=== PATIENT | female | born 1980 | race Caucasian/White ===

== ENCOUNTER 2019-11-25 19:44 | Inpatient (IN) | payer OTHER ==
[2019-11-25] MEDS ORDERED: Morphine 4 MG/ML VIAL ONE (20:55)
[2019-11-25] MEDS ORDERED: Sulfameth/Trimethoprim DS 800-160mg TAB ONE (20:55)
[2019-11-25] MEDS ORDERED: Lidocaine 1% w/Epinephrine 1:100K 20 ML VIAL ONE (20:56)
[2019-11-25] MEDS ORDERED: Ketorolac Tromethamine 30 MG/ML VIAL ONE (20:56)
[2019-11-25] MEDS ORDERED: Vancomycin 1.5 GRAM/300 ML BAG 1.5 GM in Premix Bag 1 BAG IVPB SCH (21:00)
[2019-11-25] MEDS ORDERED: Sulfameth/Trimethoprim DS 800-160mg TAB PO SCH (21:00)
[2019-11-25] MEDS ORDERED: Adacel (T-DAP) 0.5 ML SYRINGE ONE (21:54)
[2019-11-25] MEDS ORDERED: Acetaminophen 500 MG TAB ONE (22:05)
--- NOTE | 2019-11-25 23:24 | PDOC.FPRHP ---
- History of Present Illness Chief Complaint: ABD Pain History of Present Illness: Patient is a 39 y/o female who presents to the ED for evaluation of abdominal pain. Per the patient, she has had a sore on her abdomen for 4 days that has become progressively erythematous and painful after she manually expressed some of its contents. She also complains of minimal induration at the site. She tried to apply topical antibiotic ointment, but states that it did not help. She admits to an isolated fever of 101 (Oral) prior to her presentation to the ED, but denies wing drainage, foul odors, N/V, frequent infections, previous occurrence of similar sores, a history of staph infections , additional sores, chills, WELCH, changes in vision, hearing, difficulty swallowing, epistaxis or rhinorrhea. ED Course: While in the ED, an I&D was performed by the ED attending physician with subsequent packing and dressing. Immediately after the procedure, the patient became minimally hypotensive, with a BP as low as 93/58. She received 2L NS, Tylenol, Toradol and Morphine and was started on Vancomycin and Bactrim DS. - Allergies/Adverse Reactions Allergies Allergy/AdvReac Type Severity Reaction Status Date / Time No Known Drug Allergies Allergy Verified 11/26/19 00:31 - Home Medications Medication Instructions Recorded Confirmed Type Citalopram [CeleXA] 20 mg PO HS 11/26/19 11/26/19 History Zolpidem Tartrate 10 mg PO HS 11/26/19 11/26/19 History - History PMHx: Anxiety, Insomnia, Menorrhagia (Remote) PSHx: Hysterectomy, Cholecystectomy, Tonsillectomy FHx: +DM2, No Hx of Infections, Immunodeficiencies Social: Tobacco (0.5 PPD), EtOH (x5 per Week), Denies Street Drugs Code: DNAR - Review of Systems General: reports: fever/chills Eyes: denies: vision changes ENT: denies: nasal congestion, rhinorrhea Respiratory: denies: cough, congestion, shortness of breath Cardiovascular: denies: chest pain, edema Gastrointestinal: denies: nausea, vomiting, diarrhea, constipation, abdominal pain, GI bleeding Genitourinary: denies: dysuria Skin: reports: lesions, other (See HPI) Musculoskeletal: denies: swelling Neurological: denies: syncope, weakness Psychological: reports: anxiety - Vital signs BP: [95/67] HR: [77] RR: [16] Tmax: [98.3] Pox: [98]% on [Room] Wt: [84 kg] - Physical Exam Constitutional: NAD, awake, alert and oriented, well developed HEENT: normocephalic and atraumatic, PERRLA, EOMI, conjunctiva clear, no scleral icterus, grossly normal vision, grossly normal hearing, normal nasal mucosa, MMM, oropharynx clear Neck: supple, FROM, trachea midline, no LAD, no JVD Chest: no-tender to palpation, no lesions Heart: RRR, normal S1/S2, no murmurs/rubs/gallops, pulses present, no edema Lungs: CTAB, no respiratory distress, good air movement, no rales/rhonchi, no wheezing, no retractions Abdomen: other (Small wound s/p I&D ~4 cm below umbilicus. Minimal bloody strikethrough on bandage without active bleeding or discharge. Surrounding area of erythema extended 4-10 cm with no induration noted. Moderate TTP.) Musculoskeletal: normal structure, ROM grossly normal Neurological: no focal deficit Skin: no jaundice, other (See ABD) Heme/Lymphatic: no unusual bruising or bleeding, no purpura, no petechia Psychiatric: normal mood and affect, good judgment and insight, intact recent and remote memory FMR H&P: Results - Labs Result Diagrams: 11/26/19 07:58 11/25/19 23:03 - Radiology Interpretation US - abdomen Status: report reviewed by me (0.5 cm Fluid Collection (Per ED Attending Physician)) FMR H&P: A/P - Problem List (1) Abscess or cellulitis of umbilicus Current Visit: Yes Status: Acute Code(s): [id number] - (2) Tobacco abuse Current Visit: Yes Status: Acute Code(s): Z72.0 - TOBACCO USE (3) Insomnia Current Visit: Yes Status: Acute Code(s): G47.00 - INSOMNIA, UNSPECIFIED (4) Anxiety Current Visit: Yes Status: Acute Code(s): F41.9 - ANXIETY DISORDER, UNSPECIFIED - Plan Patient is a 39 y/o female admitted to the Medical Floor for ABD pain. 1. Abscess w/ Surrounding Cellulitis -s/p I&D w/ asymptomatic drop in BP -Received Vancomycin and Bactrim DS in ED - will continue with weight adjustment -Blood Cultures: Pending (Drawn After Antibiotic Administration) -Tylenol 650 mg PO Q4H for pain/fever -LR @ 125 ml/hr -Nursing staff to connor area of erythema - monitor for resolution 2. Anxiety -Currently holding home Citalopram regimen based on time of presentation -Consider restarting if patient requires > 24H of care 3. Insomnia -Currently holding home Zolpidem regimen based on risk of hypotension -Consider alternative medication regimen if required 4. Tobacco Abuse -Nicotine 14 mg Patch -Patient was counseled on tobacco cessation Code: DNAR Diet: Heart Healthy Activity: Ad Chelita VTE PPx: None based on Chang Score (0) Dispo: Patient is currently admitted to the Medical Floor for observation of Abscess w/ Surrounding Cellulitis. Continue antibiotic regimen as per above. Monitor vitals and continue with IVF. Expected LOS < 24H. FMR H&P: Upper Level - Pertinent history 39 y/o F presents to the ED because on Saturday she noticed a small bump on her lower abdomen. She reports she messed with it and then since then it has started getting more red, warm, and painful. She reports today was the worst pain and redness she has had. She reports a fever to 101 today. She denies any h /o prior skin infections or needle exposures. In the ED she was evaluated by Dr. Somers and had an I&D done of the wound along with bactrim, vanc, 2L NS, morphine, and toradol. Per report she spiked a fever and her BP dropped after the I&D so the decision was made to admit the patient. No culture of the wound was done and blood cultures weren't done prior to antibiotics. - Pertinent findings Vitals: BP 95/67, HR 77, RR 16, Tmax 100.7, O2 98% on RA Gen - alert, oriented, NAD HEENT - MMM CV - RRR, no murmurs Lungs - CTAB, no wheezes Skin - large erythematous, warm, indurated area on lower abdomen with small 1cm incision that has been packed s/p I&D Labs: Pending - Plan Date/Time: 11/25/19 2312 ILaisha MD, PGY-3, have evaluated this patient and agree with findings/ plan as outlined by intern architect resident. Pertinent changes/additions are listed here. 1. Abdominal wall abscess with surrounding cellulitis s/p bactrim, vanc, I&D of abscess. Pt does not appear septic despite temporary hypotension. -Continue vanc and bactrim -BCx pending -Labwork pending -Will connor area of cellulitis to monitor for spread or improvement 2. Anxiety -Continue citalopram 3. Insomnia -Continue zolpidem Dipso: Obs on medical LOS: Likely less than 48 hours Addendum - Attending - Attending Attestation Date/Time: 11/26/19 6304 I personally discussed the care plan with Dr Ndiaye. I agree with the History, Examination, Assessment and Plan documented above with any addition or exceptions noted below.
[2019-11-25 23:31] LABS: #Eosinphils 0.2 thou/uL (0.0-0.7); #Lymphocytes 2.6 thou/uL (1.20-3.40); #Neutrophils 9.8 thou/uL (1.40-6.50); %Basophils 0.3 % (0.0-1.0); %Eosinophils 1.6 % (0.0-10.0); %Monocytes 7.5 % (0.0-10.0); %Neutrophils 71.6 % (42.0-75.0); Hemoglobin 12.6 g/dL (12.0-16.0); Mean Corpuscular HGB CONC 34.1 g/dL (32.0-36.0); Mean Corpuscular Hemoglobin 32.7 pg (27.0-31.0); Mean Corpuscular Volume 95.9 fL (78.0-98.0); Mean Platelet Volume 7.4 fL (7.4-10.4); Platelet Count 297 thou/uL (130-400); RBC Distribution Width 11.8 % (11.5-14.5); Red Blood Cell (RBC) Count 3.85 mill/uL (4.20-5.40); White Blood Cell (WBC) Count 13.7 thou/uL (4.8-10.8)
[2019-11-25 23:40] LABS: ALT (SGPT) 15 U/L (8-55); AST (SGOT) 11 U/L (5-34); Albumin 3.8 g/dL (3.5-5.0); Alkaline Phosphatase 47 U/L (40-110); Anion Gap 10 mmol/L (10-20); BUN (Urea Nitrogen) 9 mg/dL (7.0-18.7); Bilirubin, Total 0.5 mg/dL (0.2-1.2); Calc. Creatinine Clearance 0 mL/min (70-130); Calcium 8.6 mg/dL (7.8-10.44); Carbon Dioxide 23 mmol/L (22-29); Chloride 108 mmol/L (98-107); Estimated GFR-MDRD Greater than 90; Globulin 2.8 g/dL (2.4-3.5); Glucose 107 mg/dL (70-105); Potassium 3.6 mmol/L (3.5-5.1); Protein, Total 6.6 g/dL (6.0-8.3); Sodium 137 mmol/L (136-145)
[2019-11-26] MEDS ORDERED: Calcium Carbonate 500 MG ChewTAB PO PRN (00:24)
[2019-11-26 00:40] VITALS: BMI 27.1
[2019-11-26] MEDS: Lactated Ringer's 1,000 ML IV SCH ×4 (00:59→19:53)
[2019-11-26] MEDS: Nicotine 14 MG PATCH TD SCH (00:59)
--- NOTE | 2019-11-26 05:43 | PDOC.FM ---
- Subjective Subjective: Patient states that she continues to have lower abdominal pain. The wound has continued to drain red-brown fluid. BP remains low at 90/60, earlier in night was 85/52. Patient denies any lightheadedness, dizziness, chest pain, palpitations, SOB, headache. She voices additional history that she has been running a fever at home the last few days, up to 101F. She says the wound on her lower stomach has been present for awhile and she tried to open it at home 3 days ago with some pus draining from the area. - Objective Vital Signs & Weight: Vital Signs (12 hours) Temp Pulse Resp BP Pulse Ox 11/26/19 04:23 98.1 F 80 16 90/60 98 11/26/19 00:08 98.1 F 76 14 85/52 L 98 Weight Weight 83.28 kg Result Diagrams: 11/26/19 07:58 11/25/19 23:03 Phys Exam - Physical Examination Constitutional: NAD HEENT: moist MMs Neck: no JVD, supple, full ROM Respiratory: no wheezing, clear to auscultation bilateral Cardiovascular: RRR, no significant murmur Gastrointestinal: soft, positive bowel sounds TTP across lower abdomen, erythema at margins marked @ 0430 Musculoskeletal: no edema, pulses present Neurological: normal sensation, moves all 4 limbs Psychiatric: normal affect, A&O x 3 Skin: normal turgor Deviation from normal: warm, erythematous skin across lower abdomen, red-brown drainage present Dx/Plan (1) Abscess or cellulitis of umbilicus Code(s): [id number] - Status: Acute (2) Anxiety Code(s): F41.9 - ANXIETY DISORDER, UNSPECIFIED Status: Acute (3) Insomnia Code(s): G47.00 - INSOMNIA, UNSPECIFIED Status: Acute (4) Tobacco abuse Code(s): Z72.0 - TOBACCO USE Status: Acute - Plan Plan: Patient is a 39 y/o female admitted to the Medical Floor for ABD pain. #Sepsis 2/2 Cellulitis -patient on admission had tachycardia (up to 111), SBP of < 90 (was 85), and WBC > 12 (was 13.7) -received 2L bolus in ED, started on Vancomycin and Bactrim DS in ED -will continue Abx, consider adding Clindamycin for toxin-binding properties if condition worsens -Wound cx not sent by ED, will order culture to be collected by Wound care this AM -Blood cultures pending (drawn after 1 dose Vancomycin) #Abdominal Abscess w/ Surrounding Cellulitis -s/p I&D w/ asymptomatic drop in BP -Received Vancomycin and Bactrim DS in ED - will continue with weight adjustment -Blood Cultures: Pending (Drawn After Antibiotic Administration) -Tylenol 650 mg PO Q4H for pain/fever -LR @ 125 ml/hr -Nursing staff to connor area of erythema - monitor for resolution #Anxiety -Currently holding home Citalopram regimen based on time of presentation -Consider restarting if patient requires > 24H of care #Insomnia -Currently holding home Zolpidem regimen based on risk of hypotension -Consider alternative medication regimen if required #Tobacco Abuse -Nicotine 14 mg Patch -Patient was counseled on tobacco cessation Code: DNAR Diet: Heart Healthy VTE PPx: None based on Chang Score (0) Dispo: Stable, admitted to inpatient on the Medical Floor. Continue antibiotic regimen per above, cultures pending. Will collect additional wound culture today. Monitor erythema margins & clinical condition. Expect discharge in next 48-72 hrs. Addendum - Attending - Attending Attestation Date/Time: 11/26/19 4309 I personally evaluated the patient and discussed the management with Dr. Dawson. I agree with the History, Examination, Assessment and Plan documented above with any addition or exceptions noted below. Will attempt to get a wound culture with wound care dressing change. Erythema extending beyond margins laterally to the left. Continue vancomycin. Pt meets sepsis criteria. Change to inpt.
[2019-11-26 08:32] LABS: #Eosinphils 0.2 thou/uL (0.0-0.7); #Lymphocytes 2.2 thou/uL (1.20-3.40); #Neutrophils 7.5 thou/uL (1.40-6.50); %Basophils 0.1 % (0.0-1.0); %Eosinophils 2.1 % (0.0-10.0); %Lymphocytes 20.1 % (21.0-51.0); %Monocytes 8.7 % (0.0-10.0); Hemoglobin 11.3 g/dL (12.0-16.0); Mean Corpuscular Hemoglobin 33.1 pg (27.0-31.0); Mean Corpuscular Volume 97.4 fL (78.0-98.0); Mean Platelet Volume 7.6 fL (7.4-10.4); Platelet Count 252 thou/uL (130-400); RBC Distribution Width 11.8 % (11.5-14.5); Red Blood Cell (RBC) Count 3.41 mill/uL (4.20-5.40); White Blood Cell (WBC) Count 10.9 thou/uL (4.8-10.8)
[2019-11-26] MEDS ORDERED: Sulfameth/Trimethoprim DS 800-160mg TAB PO SCH (09:00)
[2019-11-26] MEDS ORDERED: Vancomycin HCl 1.25 GM in Sodium Chloride 0.9% 250 ML 300 ML IVPB SCH (09:30)
[2019-11-26] MEDS: Acetaminophen 325 MG TAB PO PRN ×2 (11:12→17:17)
[2019-11-26] MEDS: Citalopram 20 MG TAB PO SCH (19:52)
[2019-11-27] MEDS: Nicotine 14 MG PATCH TD SCH (02:35)
--- NOTE | 2019-11-27 06:16 | PDOC.FM ---
- Subjective Subjective: Patient doing well this morning. Reports that her abdomen is much less tender than it was. Area of erythema largely within the borders of the margins, though some expansion extended through side on patient's right. Discussed with patient that we will continue IV abx at this time, and will transition to PO abx when we see improvement. Patient agreeable with the plan of care. - Objective MAR Reviewed: Yes Vital Signs & Weight: Vital Signs (12 hours) Temp Pulse Resp BP Pulse Ox 11/27/19 04:00 99.0 F 81 16 103/70 11/27/19 01:05 77 99/64 11/26/19 20:00 98.3 F 86 16 88/56 L 97 Weight Admit Weight 83.007 kg Weight 83.28 kg I&O: 11/25/19 11/26/19 11/27/19 06:59 06:59 06:59 Intake Total 911 2360 Output Total 300 Balance 611 2360 Result Diagrams: 11/27/19 06:29 11/27/19 06:29 Phys Exam - Physical Examination Constitutional: NAD HEENT: moist MMs, sclera anicteric Neck: supple, full ROM Respiratory: no wheezing, clear to auscultation bilateral Cardiovascular: RRR, no significant murmur Gastrointestinal: soft area of erythema over lower abdomen, abscess wound cover c/d/i Musculoskeletal: no edema, pulses present Neurological: non-focal, normal sensation Lymphatic: no nodes Psychiatric: normal affect, A&O x 3 Skin: no rash, normal turgor Dx/Plan (1) Abscess or cellulitis of umbilicus Code(s): [id number] - Status: Acute (2) Anxiety Code(s): F41.9 - ANXIETY DISORDER, UNSPECIFIED Status: Chronic (3) Insomnia Code(s): G47.00 - INSOMNIA, UNSPECIFIED Status: Chronic (4) Tobacco abuse Code(s): Z72.0 - TOBACCO USE Status: Chronic - Plan Plan: Patient is a 39 y/o female admitted to the Medical Floor for lower abdominal cellulitis and abscess. #Sepsis 2/2 Cellulitis -patient on admission had tachycardia (up to 111), SBP of < 90 (was 85), and WBC > 12 (was 13.7) -received 2L bolus in ED, started on Vancomycin and Bactrim DS in ED -afebrile overnight -vancomycin was discontinued yesterday; will re-start vancomycin this morning -will continue vancomycin, consider adding Clindamycin for toxin-binding properties if condition worsens -Wound cx not sent by ED, culture ordered with preliminary results showing gram + cocci in clusters -Blood cultures pending (drawn after 1 dose Vancomycin) #Abdominal Abscess w/ Surrounding Cellulitis -s/p I&D w/ asymptomatic drop in BP -Received Vancomycin and Bactrim DS in ED - will continue vancomycin with weight adjustment -Blood Cultures: Pending (Drawn After Antibiotic Administration) -Wound cultures: gram + cocci in clusters, pending sensitivities -Tylenol 650 mg PO Q4H for pain/fever -LR @ 125 ml/hr -Nursing staff to connor area of erythema - monitor for resolution #Anxiety -Continue home Citalopram #Insomnia -Currently holding home Zolpidem regimen based on risk of hypotension -Consider alternative medication regimen if required #Tobacco Abuse -Nicotine 14 mg Patch -Patient was counseled on tobacco cessation Code: DNAR Diet: Heart Healthy VTE PPx: None based on Chang Score (0) Dispo: Stable, admitted to inpatient on the Medical Floor. Continue antibiotic regimen per above, cultures pending. Addendum - Attending - Attending Attestation Date/Time: 11/27/19 1037 I personally evaluated the patient and discussed the management with Dr. Dawson. I agree with the History, Examination, Assessment and Plan documented above with any addition or exceptions noted below. Pt will continue vanc. Her tenderness is improved. Erythema is stable and possible a little improved from yesterday. Pt is hypotensive with systolic in 80's but she is asymptomatic.
[2019-11-27 06:58] LABS: #Eosinphils 0.2 thou/uL (0.0-0.7); #Lymphocytes 1.5 thou/uL (1.20-3.40); #Monocytes 0.7 thou/uL (0.11-0.59); #Neutrophils 5.6 thou/uL (1.40-6.50); %Basophils 0.1 % (0.0-1.0); %Eosinophils 2.4 % (0.0-10.0); %Lymphocytes 18.9 % (21.0-51.0); %Monocytes 8.5 % (0.0-10.0); %Neutrophils 70.1 % (42.0-75.0); Hemoglobin 11.9 g/dL (12.0-16.0); Mean Corpuscular HGB CONC 34.3 g/dL (32.0-36.0); Mean Corpuscular Hemoglobin 32.9 pg (27.0-31.0); Mean Corpuscular Volume 95.9 fL (78.0-98.0); Mean Platelet Volume 7.5 fL (7.4-10.4); Platelet Count 247 thou/uL (130-400); RBC Distribution Width 11.9 % (11.5-14.5); Red Blood Cell (RBC) Count 3.62 mill/uL (4.20-5.40); White Blood Cell (WBC) Count 7.9 thou/uL (4.8-10.8)
[2019-11-27 07:17] LABS: Anion Gap 8 mmol/L (10-20); BUN (Urea Nitrogen) 5 mg/dL (7.0-18.7); Calc. Creatinine Clearance 154 mL/min (70-130); Calcium 8.7 mg/dL (7.8-10.44); Carbon Dioxide 24 mmol/L (22-29); Chloride 107 mmol/L (98-107); Estimated GFR-MDRD Greater than 90; Glucose 96 mg/dL (70-105); Sodium 135 mmol/L (136-145)
[2019-11-27] MEDS: Lactated Ringer's 1,000 ML IV SCH ×3 (08:31→20:31)
[2019-11-27] MEDS: Vancomycin HCl 1.25 GM in Sodium Chloride 0.9% 250 ML 250 ML IVPB SCH ×2 (09:29→16:22)
[2019-11-27] MEDS: Citalopram 20 MG TAB PO SCH (20:32)
[2019-11-27] MEDS ORDERED: Clotrimazole 2% 3 Day Vag Cr 22.2 GM TUBE VAG SCH (21:00)
[2019-11-28] MEDS: Nicotine 14 MG PATCH TD SCH (00:44)
[2019-11-28] MEDS: Vancomycin HCl 1.25 GM in Sodium Chloride 0.9% 250 ML 250 ML IVPB SCH ×2 (00:44→08:05)
--- NOTE | 2019-11-28 05:34 | PDOC.FM ---
- Subjective Subjective: Patient doing well this morning. Reports her abdominal pain from the cellulitis is greatly improved. Reports that her mother is a nurse and she works in a long term with wound care staff that could help her change her bandaging for where the abscess was drained. Discussed likely transition to PO abx today, with possible d/c. Patient agreeable. - Objective Vital Signs & Weight: Vital Signs (12 hours) Temp Pulse Resp BP Pulse Ox 11/28/19 00:00 98.5 F 51 L 16 90/58 L 98 11/27/19 20:00 98.7 F 67 16 108/70 98 Weight Admit Weight 83.007 kg Weight 83.28 kg I&O: 11/26/19 11/27/19 11/28/19 06:59 06:59 06:59 Intake Total 911 2360 Output Total 300 Balance 611 2360 Result Diagrams: 11/27/19 06:29 11/27/19 06:29 Phys Exam - Physical Examination Constitutional: NAD HEENT: moist MMs, sclera anicteric Neck: supple, full ROM Respiratory: no wheezing, clear to auscultation bilateral Cardiovascular: RRR, no significant murmur Gastrointestinal: soft lower abdominal erythema, improved; abscess wound bandage c/d/i Musculoskeletal: no edema, pulses present Neurological: non-focal, moves all 4 limbs Psychiatric: normal affect, A&O x 3 Skin: normal turgor Deviation from normal: lower abdominal cellulitis rash improved Dx/Plan (1) Abscess or cellulitis of umbilicus Code(s): [id number] - Status: Acute (2) Anxiety Code(s): F41.9 - ANXIETY DISORDER, UNSPECIFIED Status: Chronic (3) Insomnia Code(s): G47.00 - INSOMNIA, UNSPECIFIED Status: Chronic (4) Tobacco abuse Code(s): Z72.0 - TOBACCO USE Status: Chronic - Plan Plan: Patient is a 39 y/o female admitted to the Medical Floor for lower abdominal cellulitis and abscess. #Sepsis 2/2 Cellulitis -patient on admission had tachycardia (up to 111), SBP of < 90 (was 85), and WBC > 12 (was 13.7) -received 2L bolus in ED, started on Vancomycin and Bactrim DS in ED -afebrile overnight -vancomycin was re-started morning of 11/27 -Wound cx not sent by ED, culture ordered with preliminary results showing staph aureus resistant to amoxicillin, azithromycin, clarithromycin, erythromycin, piperacillin -will transition to PO clindamycin today -Blood cultures pending (drawn after 1 dose Vancomycin) #Abdominal Abscess w/ Surrounding Cellulitis -s/p I&D w/ asymptomatic drop in BP -Received Vancomycin and Bactrim DS in ED -Blood Cultures: Pending (Drawn After Antibiotic Administration) -Wound cultures: staph aureus -Tylenol 650 mg PO Q4H for pain/fever -LR @ 125 ml/hr #Anxiety -Continue home Citalopram #Insomnia -Currently holding home Zolpidem regimen based on risk of hypotension -Consider alternative medication regimen if required #Tobacco Abuse -Nicotine 14 mg Patch -Patient was counseled on tobacco cessation Code: DNAR Diet: Heart Healthy VTE PPx: None based on Chang Score (0) Dispo: Stable, admitted to inpatient on the Medical Floor. Transition from IV to PO abx, with possible d/c today if patient tolerates PO abx.
[2019-11-28] MEDS: Lactated Ringer's 1,000 ML IV SCH (05:57)
[2019-11-28 07:43] VITALS: TEMP 98.2
[2019-11-28 08:35] LABS: #Eosinphils 0.3 thou/uL (0.0-0.7); #Lymphocytes 1.6 thou/uL (1.20-3.40); #Monocytes 0.7 thou/uL (0.11-0.59); #Neutrophils 3.4 thou/uL (1.40-6.50); %Basophils 0.5 % (0.0-1.0); %Eosinophils 4.5 % (0.0-10.0); %Lymphocytes 27.3 % (21.0-51.0); %Neutrophils 56.7 % (42.0-75.0); Mean Corpuscular HGB CONC 34.3 g/dL (32.0-36.0); Mean Corpuscular Hemoglobin 32.8 pg (27.0-31.0); Mean Corpuscular Volume 95.7 fL (78.0-98.0); Mean Platelet Volume 7.6 fL (7.4-10.4); Platelet Count 263 thou/uL (130-400); RBC Distribution Width 11.8 % (11.5-14.5); Red Blood Cell (RBC) Count 3.66 mill/uL (4.20-5.40)
[2019-11-28 08:54] LABS: Vancomycin, Trough 14.8 ug/mL
[2019-11-28 08:56] LABS: Anion Gap 12 mmol/L (10-20); BUN (Urea Nitrogen) 8 mg/dL (7.0-18.7); Calc. Creatinine Clearance 154 mL/min (70-130); Carbon Dioxide 24 mmol/L (22-29); Chloride 105 mmol/L (98-107); Estimated GFR-MDRD Greater than 90; Glucose 95 mg/dL (70-105); Potassium 4.1 mmol/L (3.5-5.1); Sodium 137 mmol/L (136-145)
[2019-11-28 11:37] VITALS: BP 95/64
--- NOTE | 2019-12-01 06:33 | PQF ---
[employer] Comic Illustrator Crystal Reports Winform ViewerSTBUCK ROSA TRICIA NORIEGA MD [id number] [facility] [id number] CLINICAL DOCUMENTATION CLARIFICATION FORM: POST DISCHARGE Addendum to original discharge summary date: ____ Late entry note date: __ DATE: 12/01/2019 ATTN: TRICIA NORIEGA MD Please exercise your independent, professional judgment in responding to the clarification form. Clinical indicators are provided on the bottom of this form for your review Please check appropriate box(s): [ ] Incision and Drainage only (No Debridement): Depth:[ ] Skin [ ] Subcutaneous [ ] Fascia [ ] Muscle [ ] Tendon [ ] Bone [ ] Escharectomy [ ] Other procedure diagnosis [ ] Unable to determine For continuity of documentation, please document condition throughout progress notes and discharge summary. Thank You. CLINICAL INDICATORS - SIGNS / SYMPTOMS / LABS I&D indicated for cutaneous abscess - Documented in ED note pg#8 by TRICIA NORIEGA MD The abscess cavity was well visualized - Documented in ED note pg#8 by TRICIA NORIEGA MD I&D to abdomen, tissue abscess simple - Documented in ED note pg#8 by TRICIA NORIEGA MD incision was made over area of fluctuance explored for loculations - Documented in ED note pg#8 by TRICIA NORIEGA MD RISK FACTORS There was no complication - Documented in ED note pg#8 by TRICIA NORIEGA MD Cellulitis of the abdominal wall - Documented in ED note pg#8 by TRICIA NORIEGA MD TREATMENTS: packed with sterile gauze drained pus after procedure wound dressed - Documented in ED note pg#8 by TRICIA NORIEGA MD (This form is maintained as a part of the permanent medical record) 2015 [employer]. All Rights Reserved [email or web address] [not provided] MTDD
--- NOTE | 2019-12-07 14:01 | DIS ---
DATE OF ADMISSION: 11/26/2019 DATE OF DISCHARGE: 11/28/2019 ADMITTING RESIDENT: Deejay Ndiaye MD. ADMITTING ATTENDING: Carlos Enrique Chavez MD. DISCHARGE RESIDENT: Rosamaria Mckenzie MD. DISCHARGE ATTENDING: Jac Ravi MD. CONSULTS: Wound care. PROCEDURES: I and D in the emergency department. IMAGING: None. PRIMARY DIAGNOSES: Sepsis due to cellulitis, abdominal abscess with surrounding cellulitis. SECONDARY DIAGNOSES: Anxiety, insomnia, tobacco abuse. DISCHARGE MEDICATIONS: 1. 500 mg Keflex p.o. q.6 hours x10 days. 2. 20 mg citalopram p.o. at bedtime. 3. 10 mg zolpidem tartrate p.o. at bedtime. Discontinued medications; 1. Tylenol p.r.n. 2. Tums p.r.n. 3. Monistat. 4. Nicotine patch. 5. Vancomycin. HISTORY OF PRESENT ILLNESS/HOSPITAL COURSE: The patient is a 39-year-old female with a past medical history of anxiety and depression and tobacco abuse, who presented for abdominal pain. She had reported that she had a sore on her abdomen for the past 4 days that has become progressively erythematous and painful and she was able to express some of its contents with palpation. She had tried topical antibiotic ointment, but it did not help and she had fever prior to her presentation in the ED. While in the ED, an I & D was performed with subsequent packing and dressing and after the procedure, the patient became hypotensive with blood pressures in the 90s over 50s, so she was admitted to the medical floor for treatment of sepsis due to cellulitis and abdominal abscess. The patient was started on vancomycin, though had received a dose of Bactrim in the ER. With the vancomycin, the patient showed improvement, as the area of erythema has been marked each day to show progression of the cellulitis. On the day of discharge, the patient was transitioned over from vancomycin to Keflex, as the wound culture had grown out Staph aureus sensitive to Keflex. The patient did have low blood pressures throughout her hospitalization, ranging in the 80s to 90s over 50s to 60s, the patient was asymptomatic during the entire duration of her hospitalization and p.o. intake was encouraged. 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 Directions were also given on how to take the Keflex for the next 10 days and to followup with her primary care provider within the next week to monitor for any return of erythema or abscess. It was also discussed that if the patient was to have a fever or if erythema was to worsen, the patient was instructed to go back to the ER to be evaluated. The patient was evaluated on the day of the discharge and found to be in stable condition and was agreeable with the plan of care. DISCHARGE DISPOSITION: Stable. DISCHARGE INSTRUCTIONS: 1. Location: Home. 2. Diet: Regular. 3. Activity: As tolerated. 4. Follow up with PCP within 7 days. Patient was provided info on [employer]. Job ID: [id number] MTDD
== END 2019-11-28 12:14 | disposition home or self-care (01) | DRG 872 ==
LOC: ERS 19:44 → 2SW 23:05 → OBSVTOIN 11-26 07:38 → T4-B 11-26 17:18
PROVIDERS: ADMIT Family Medicine; ATTEND Family Medicine
PROC: 0W9F3ZZ Drainage of Abdominal Wall, Percutaneous Approach (ICD-10-PCS; principal; 2019-11-26)
DX: A41.9 Sepsis, unspecified organism (principal); L03.311 Cellulitis of abdominal wall; L02.211 Cutaneous abscess of abdominal wall; F41.9 Anxiety disorder, unspecified; Z90.710 Acquired absence of both cervix and uterus; Z90.49 Acquired absence of other specified parts of digestive tract; G47.00 Insomnia, unspecified; Z66 Do not resuscitate; F17.210 Nicotine dependence, cigarettes, uncomplicated
CPT/HCPCS: 10061; 36415; 80048; 80053; 80202; 83605; 84145; 85025; 87040; 87070; 87077; 87186; 87205; 90471; 90715; 96365; 96366; 96375; J1885; J2270; J3370; J7050